=== PATIENT | female | born 1965 | race Caucasian/White ===

== ENCOUNTER 2021-12-09 10:14 | Emergency (ER) | payer OTHER ==
[2021-12-09 10:26] VITALS: TEMP 97.3; BMI 23.4
[2021-12-09] MEDS ORDERED: ACETAMINOPHEN 325 MG TABLET (FP) PO ONE (11:36)
[2021-12-09] MEDS ORDERED: ACETAMINOPHEN 325 MG TABLET (FP) ONE (12:02)
[2021-12-09 12:52] LABS: BASO % 0.5 % (0-2.0); EOS % 1.6 % (0-4.5); HEMATOCRIT 41.1 % (32.4-45.2); HEMOGLOBIN 13.6 GM/dL (10.7-15.3); LYMPH % 33.2 % (8-40); MCH 30.2 pg (25.7-33.7); MCHC 33.1 g/dl (32.0-36.0); MEAN CELL VOLUME 91.3 fl (80-96); MEAN PLT VOLUME 8.4 fl (7.5-11.1); MONO % 6.1 % (3.8-10.2); NEUT % 58.6 % (42.8-82.8); PLATELET COUNT 270 10^3/uL (134-434); RDW 13.5 % (11.6-15.6); WHITE BLOOD COUNT 9.4 K/mm3 (4.0-10.0)
[2021-12-09 14:08] LABS: ALBUMIN 3.6 g/dl (3.4-5.0); BLOOD UREA NITROGEN 18.9 mg/dL (7-18); CALCIUM 8.8 mg/dL (8.5-10.1)
[2021-12-09 14:12] LABS: BILIRUBIN,TOTAL 0.4 mg/dL (0.2-1)
[2021-12-09 16:56] VITALS: BP 104/46; PULSE 90
== END 2021-12-09 16:57 | disposition home or self-care (01) ==
LOC: JER 10:14
DX: S09.90XA Unspecified injury of head, initial encounter (principal); W18.2XXA Fall in (into) shower or empty bathtub, initial encounter
CPT/HCPCS: 36415; 70450-TC; 72125-TC; 72170-TC-FY; 73030-TC-RT-FY; 73502-TC-RT-FY; 73552-TC-RT-FY; 80053; 82550; 82553; 85025; 99285-25